=== PATIENT | male | born 1970 | race Hispanic/Latino ===

== ENCOUNTER 2023-09-02 11:26 | Emergency (ER) | payer BC ==
[~2023-09-02] VITALS: Ht 167.6 cm; Wt 82.6 kg
[2023-09-02 11:33] VITALS: BP 129/87
[2023-09-02 11:51] LABS: RAPID GROUP A STREP negative (NEGATIVE)
[2023-09-02 11:57] LABS: SARS-CoV-2, RNA, NAAT NEGATIVE SARS CoV-2 (NEGATIVE)
[2023-09-02 12:01] LABS: INFLUENZA TYPE A Negative For Type A (NEGATIVE); INFLUENZA TYPE B Negative For Type B (NEGATIVE)
[2023-09-02] MEDS ORDERED: ALBUTEROL 0.083% 2.5 MG/3 ML INH IH ONE (12:30)
[2023-09-02] MEDS ORDERED: DEXAMETHASONE SOD PHOSPHATE 4 MG/ML 1ML VIAL IM ONE (12:30)
[2023-09-02 12:32] VITALS: PULSE 87; RESP 18
[2023-09-02] MEDS ORDERED: BUDE90AE IH (12:37)
[2023-09-02] MEDS ORDERED: METH4TAB3 PO (12:37)
[2023-09-02] MEDS ORDERED: BENZ-39 PO (12:37)
[2023-09-04] MEDS ORDERED: [UNRECOGNIZED DRUG - SUPPLY] IH (19:01)
[2023-09-04] MEDS ORDERED: FLUT1BLS IH (19:01)
[2023-09-04] MEDS ORDERED: ALBU18HF7 IH (19:01)
== END 2023-09-02 13:33 | disposition home or self-care (01) ==
LOC: EDH 11:26
DX: J20.8 Acute bronchitis due to other specified organisms (principal); B34.9 Viral infection, unspecified; R05.9 Cough, unspecified; Z20.822 Contact with and (suspected) exposure to COVID-19
CPT/HCPCS: 99284; 71045; 87635; 87880; 87804 ×2; 96372; 94640; J1100